=== PATIENT | female | born 1940 | race Caucasian/White ===

== ENCOUNTER → 2019-05-21 19:35 | Outpatient (ROUT) | payer MEDICARE, OTHER, SELFPAY ==
[2019-05-21 19:51] LABS: Add Manual Diff / Slide Review NO; Basophils Absolute Auto 0 /uL (0-100); Basophils Percent Auto 0.6 % (0-2); Eosinophils Absolute Auto 100 /uL (0-450); Eosinophils Percent Auto 0.9 % (2-4); Hematocrit 47.1 % (36-46); Hemoglobin 15.7 g/dL (12.0-16.0); Lymphocytes Absolute Auto 2000 /uL (1100-4500); Lymphocytes Percent Auto 24.7 % (25-40); Mean Corpuscular HGB Conc 33.4 % (30-36); Mean Corpuscular Hemoglobin 31.5 PG (26-34); Mean Corpuscular Volume 94.2 fL (80-100); Monocytes Absolute Auto 1100 /uL (0-900); Monocytes Percent Auto 13.6 % (3-14); Neutrophils Absolute Auto 5000 /uL (1500-7000); Neutrophils Percent Auto 60.2 % (50-75); Red Cell Distribution Width 14.7 % (11.6-14.8); White Blood Cell Count 8.2 X10^3/uL (4.5-11.0)
[2019-05-21 19:58] LABS: Alanine Aminotransferase 21 IU/L (<35); Albumin 4.4 g/dL (3.5-5.0); Albumin Globulin Ratio 1.3 (1.0-2.8); Alkaline Phosphatase 67 U/L (38-126); Aspartate Aminotransferase 34 IU/L (14-36); BUN Creatinine Ratio 38.6 (6-22); Bilirubin Total 0.8 mg/dL (0.2-1.3); Blood Urea Nitrogen 27 mg/dL (7-17); Calcium 10.7 mg/dL (8.4-10.2); Carbon Dioxide 31 mmol/L (22-32); Chloride 99 mmol/L (98-107); Estimated Glomerular Filt Rate > 60.0 mL/min (>60); Globulin 3.4 g/dL (1.7-4.1); Glucose 104 mg/dL (80-110); HEMOLYSIS < 15 (0-50); Magnesium 2.2 mg/dL (1.6-2.3); Potassium 4.1 mmol/L (3.4-5.1); Sodium 141 mmol/L (137-145); Total Protein 7.8 g/dL (6.3-8.2)
[2019-05-21 20:06] LABS: NT-proBNP (BNP-Adult 18+) 4630 pg/mL (<450)
== END ==
PROVIDERS: Family Provider Physician Assistant; PCP Physician Assistant; Visit Provider Internal Medicine
DX: I49.9 Cardiac arrhythmia, unspecified (principal); I10 Essential (primary) hypertension; R06.00 Dyspnea, unspecified; R53.83 Other fatigue
CPT/HCPCS: 80053; 83735; 83880; 84443; 85025

== ENCOUNTER → 2020-03-24 18:57 | Outpatient (ROUT) | payer MEDICARE, OTHER, SELFPAY ==
[2020-03-24 19:24] LABS: Add Manual Diff / Slide Review NO; Basophils Absolute Auto 100 /uL (0-100); Basophils Percent Auto 0.7 % (0-2); Eosinophils Absolute Auto 100 /uL (0-450); Eosinophils Percent Auto 1.5 % (2-4); Hematocrit 38.4 % (36-46); Hemoglobin 12.5 g/dL (12.0-16.0); Lymphocytes Absolute Auto 1400 /uL (1100-4500); Lymphocytes Percent Auto 16.1 % (25-40); Mean Corpuscular HGB Conc 32.7 % (30-36); Mean Corpuscular Hemoglobin 30.5 PG (26-34); Mean Corpuscular Volume 93.4 fL (80-100); Monocytes Absolute Auto 1200 /uL (0-900); Neutrophils Absolute Auto 5700 /uL (1500-7000); Neutrophils Percent Auto 67.7 % (50-75); Platelet Count 161 X10^3/uL (150-400); Red Blood Cell Count 4.11 X10^6/uL (4.0-5.2); Red Cell Distribution Width 15.5 % (11.6-14.8); White Blood Cell Count 8.5 X10^3/uL (4.5-11.0)
[2020-03-24 19:49] LABS: Platelet Estimate Adequate on smear; RBC Morphology Normal Morphology
== END ==
PROVIDERS: Family Provider Physician Assistant; PCP Physician Assistant; Visit Provider Internal Medicine
DX: Z00.00 Encounter for general adult medical examination without abnormal findings (principal); D69.6 Thrombocytopenia, unspecified
CPT/HCPCS: 85025

== ENCOUNTER 2021-05-08 07:00 | Observation (INO) | payer MEDICARE, OTHER, SELFPAY ==
[2021-05-08] VITALS (31 sets, daily range): BP systolic 120–179; BP diastolic 59–102; PULSE 67–90; RESP 16–26; TEMP 35.9–36.6; O2SAT 94–98; BMI 21.0
[2021-05-08] MEDS: NITROGLYCERIN 0.4 MG SL TAB SL ×2 (07:26→07:44)
--- NOTE | 2021-05-08 08:28 | DI.RAD.S_ITS ---
PROCEDURE: XR CHEST 1V INDICATIONS: chest pressure TECHNIQUE: One view of the chest was acquired. COMPARISON: None. FINDINGS: Surgical changes and devices: Left chest wall cardiac pacer. Partially visualized cholecystectomy clips. Lungs and pleura: Lungs are clear. No pleural effusions or pneumothorax. Lungs hyperinflated suggesting COPD. Mediastinum: Mediastinal contours appear normal. Heart size is normal. Bones and chest wall: No suspicious bony lesions. Overlying soft tissues appear unremarkable. IMPRESSION: No acute cardiopulmonary disease process. Dictated by: Emma Rose MD, PhD on 05/08/2021 at 10:40 Approved by: Emma Rose MD, PhD on 05/08/2021 at 10:41
[2021-05-08 08:36] LABS: Alanine Aminotransferase 18 IU/L (<35); Albumin 4.6 g/dL (3.5-5.0); Albumin Globulin Ratio 1.2 (1.0-2.8); Alkaline Phosphatase 64 U/L (38-126); Aspartate Aminotransferase 33 IU/L (14-36); BUN Creatinine Ratio 22.2 (6-22); Bilirubin Total 0.7 mg/dL (0.2-1.3); Blood Urea Nitrogen 26 mg/dL (7-17); Calcium 10.3 mg/dL (8.4-10.2); Carbon Dioxide 31 mmol/L (22-32); Chloride 101 mmol/L (98-107); Creatine Kinase 50 U/L (30-135); Estimated Glomerular Filt Rate 44.6 mL/min (>60); Globulin 3.7 g/dL (1.7-4.1); Glucose 131 mg/dL (80-110); HEMOLYSIS < 15 (0-50); Lipase 153 U/L (23-300); Potassium 4.6 mmol/L (3.4-5.1); Sodium 141 mmol/L (137-145); Total Protein 8.3 g/dL (6.3-8.2); Troponin I 0.041 ng/mL (0.01-0.034)
--- NOTE | 2021-05-08 08:38 | ED.CHESTPAIN ---
HPI - Chest Pain General Chief Complaint: Chest Pain Stated Complaint: chest pressure Time Seen by Provider: 05/08/21 07:00 History of Present Illness HPI narrative: Patient is a 74-year-old female who has history of atrial fibrillation with pacemaker on warfarin presenting with chest pressure.? She states this started last evening he not sure when she described as a dull ache but constant.? She says that she has felt this before however it has always gone away and it has lasted all night.? She denies any shortness of breath no nausea or vomiting.? No palpitations dizziness or lightheadedness.? The pain is nonradiating.? She has no known coronary artery disease.? She received 1 nitroglycerin with EMS and is unsure if it helped. Related Data Home Medications Medication Instructions Recorded Confirmed amiodarone 200 mg tablet 200 mg PO BID 05/08/21 05/08/21 furosemide 20 mg tablet 20 mg PO DAILY 05/08/21 05/08/21 hydrocodone 5 mg-acetaminophen 325 1 tab PO BEDTIME PRN 05/08/21 05/08/21 mg tablet lisinopril 20 mg tablet 20 mg PO BID 05/08/21 05/08/21 metformin 500 mg tablet,extended 500 mg PO BID 05/08/21 05/08/21 release 24 hr metoprolol succinate 100 mg 100 mg PO BID 05/08/21 05/08/21 tablet,extended release 24 hr rosuvastatin 10 mg tablet 10 mg PO BEDTIME 05/08/21 05/08/21 spironolactone 25 mg tablet 25 mg PO DAILY 05/08/21 05/08/21 warfarin 2 mg tablet 2 mg PO DAILY 05/08/21 05/08/21 Allergies Allergy/AdvReac Type Severity Reaction Status Date / Time aspirin Allergy Mild Rash Verified 05/08/21 08:33 Penicillins Allergy Mild Rash Verified 05/08/21 11:40 tetracycline Allergy Mild Rash Verified 05/08/21 11:45 amoxicillin Allergy Unknown Verified 05/08/21 11:40 atenolol Allergy Unknown Verified 05/08/21 11:40 cephalexin Allergy Unknown Verified 05/08/21 11:40 clavulanic acid Allergy Unknown Verified 05/08/21 11:40 erythromycin base Allergy Unknown Verified 05/08/21 11:40 Iodine and Iodide Containing Allergy Unknown Verified 05/08/21 10:23 Produc nitrofurantoin Allergy Unknown Verified 05/08/21 11:40 sulfamethoxazole Allergy Unknown Verified 05/08/21 11:40 [From Bactrim] trimethoprim [From Bactrim] Allergy Unknown Verified 05/08/21 11:40 alcohol AdvReac Unknown Verified 05/08/21 11:40 Review of Systems Review of Systems Narrative: ? GENERAL: Denies chills, fatigue, malaise, fever, sweats, travel HEENT: Denies sinus pain, ear pain, sore throat, difficulty swallowing, neck pain RESPIRATORY: Denies dyspnea, cough, wheezing, hemoptysis, sputum. CARDIOVASCULAR:? See HPI GASTROINTESTINAL: Denies nausea, vomiting, abdominal pain, diarrhea, constipation, melena. : Denies dysuria, frequency, incontinence, hematuria, urinary retention, flank pain. MUSCULOSKELETAL: Denies weakness, joint pain, or bony pain SKIN: No rash, no erythema, no pruritus NEUROLOGIC: Denies weakness, dizziness, headache, numbness, change in speech, confusion PSYCHIATRIC: No concerning psychosocial issues. ? 12 point review of systems is negative except for those stated above and HPI Patient History Medical History Arrhythmia Atrial fibrillation Diabetes HTN (hypertension) Pacemaker Surgical History H/O section S/P placement of cardiac pacemaker Family History Mother Hypertension Father Hypertension Social History household members: children Smoking Status: Former smoker alcohol intake: never Exam Initial Vital Signs Initial Vital Signs: Vital Signs Temperature 97.7 F 05/08/21 07:00 Pulse Rate 69 05/08/21 07:00 Respiratory Rate 18 05/08/21 07:00 Blood Pressure 178/92 H 05/08/21 07:00 Pulse Oximetry 98 05/08/21 07:00 ? GENERAL: ?Alert well-appearing 74-year-old female no acute distress and in [no acute] distress. HEENT: Head atraumatic,EOMI, pupils reactive, face symmetric, [moist] mucous membranes CARDIOVASCULAR: Regular rate and rhythm without murmurs, rubs or gallops. RESPIRATORY: Breath sounds equal bilaterally, no wheezes rales or rhonchi. ABDOMEN: Soft, nontender.? Normoactive bowel sounds all 4 quadrants.? No guarding or rebound. EXTREMITIES: Normal range of motion, no clubbing or edema.? Neurovascularly intact NEUROLOGICAL: Alert and oriented x4.Normal gait and speech. SKIN: Warm, dry, no laceration, no petechiae, no rashes or lesions. Scores HEART Score Heart Score history: Moderately Suspicious Heart Score EKG: Normal Heart Score Age: > or = 65 years old Heart Score risk factors: 1-2 risk factors Heart Score troponin: < or = to normal limit Heart Score Total: 4 Course Orders Ordered: ED Orders 05/08/21 10:49 COVID19 -Nasal swab/Pre-Proc Stat Acetaminophen (Acetaminophen 325 Mg Tablet) 650 mg PO Q6HR PRN PRN Reason: Fever/Mild Pain (1-3) Hydrocodone Bitart/Acetaminophen (Hydrocodone/Acet 5/325 Tablet) 1 tab PO BEDTIME PRN PRN Reason: Pain (Scale Score 1-3) Amiodarone HCl (Amiodarone 200 Mg Tablet) 200 mg PO BID [facility] Atorvastatin Calcium (Atorvastatin 20 Mg Tablet) 20 mg PO BEDTIME JADYN Furosemide (Furosemide 20 Mg Tablet) 20 mg PO DAILY [facility] Lisinopril (Lisinopril 20 Mg Tablet) 20 mg PO BID JADYN Metformin HCl (Metformin Xr 500 Mg Tablet) 500 mg PO BID JADYN Metoprolol Succinate (Metoprolol Er 50 Mg Tablet) 100 mg PO BID JADYN Nitroglycerin (Nitroglycerin 0.4 Mg Sl Tab) 0.4 mg SL [id number] PRN PRN Reason: Chest Pain Last Admin: 05/08/21 07:44 Dose: 0.4 mg Documented by: Admin: 05/08/21 07:26 Dose: 0.4 mg Documented by: HAL Spironolactone (Spironolactone 25 Mg Tablet) 25 mg PO DAILY [facility] Warfarin Sodium (Warfarin 2 Mg Tablet) 2 mg PO DAILY JADYN Vital Signs Vital signs: Vital Signs - 8 hr 05/08/21 11:00 05/08/21 11:07 05/08/21 11:30 Pulse Rate 70 71 69 Respiratory Rate 18 19 19 Blood Pressure 148/71 H 154/74 H Pulse Oximetry 96 96 96 05/08/21 11:32 05/08/21 12:00 05/08/21 12:30 Pulse Rate 69 73 69 Respiratory Rate 18 16 17 Blood Pressure 154/74 H Pulse Oximetry 95 97 95 05/08/21 12:31 05/08/21 13:00 Pulse Rate 69 72 Respiratory Rate 20 26 H Blood Pressure 154/75 H 156/75 H Pulse Oximetry 95 96 MDM - Chest Pain Lab Data Result diagrams: 05/08/21 08:30 05/08/21 08:30 Labs: Lab Results 05/08/21 05/08/21 05/08/21 Range/Units 08:30 08:30 08:30 WBC 9.3 (4.5-11.0) X10^3/uL RBC 4.68 (4.0-5.2) X10^6/uL Hgb 14.3 (12.0-16.0) g/dL Hct 42.9 (36-46) % MCV 91.7 (80-100) fL MCH 30.6 (26-34) PG MCHC 33.3 (30-36) % RDW 14.5 (11.6-14.8) % Plt Count 217 (150-400) X10^3/uL Neut % (Auto) 57.2 (50-75) % Lymph % (Auto) 22.9 L (25-40) % [place] % (Auto) 17.3 H (3-14) % Eos % (Auto) 2.0 (2-4) % Baso % (Auto) 0.6 (0-2) % Neut # (Auto) 5300 (0904-6826) /uL Lymph # (Auto) 2100 (5354-1711) /uL [place] # (Auto) 1600 H (0-900) /uL Eos # (Auto) 200 (0-450) /uL Baso # (Auto) 100 (0-100) /uL PT 21.2 H (10.1-12.7) SECONDS INR 1.9 H (0.9-1.3) APTT 39 H (26.4-36.2) SECONDS Sodium 141 (137-145) mmol/L Potassium 4.6 (3.4-5.1) mmol/L Chloride 101 (98-107) mmol/L Carbon Dioxide 31 (22-32) mmol/L BUN 26 H (7-17) mg/dL Creatinine 1.17 H (0.52-1.04) mg/dL Estimated GFR 44.6 L (>60) mL/min BUN/Creatinine Ratio 22.2 H (6-22) Glucose 131 H (80-110) mg/dL Calcium 10.3 H (8.4-10.2) mg/dL Magnesium 1.9 (1.6-2.3) mg/dL Total Bilirubin 0.7 (0.2-1.3) mg/dL AST 33 (14-36) IU/L ALT 18 (<35) IU/L Alkaline Phosphatase 64 (38-126) U/L Total Creatine Kinase 50 (30-135) U/L CK-MB (CK-2) TNP CK-MB (CK-2) Rel Index TNP Troponin I 0.041 H (0.01-0.034) ng/mL Total Protein 8.3 H (6.3-8.2) g/dL Albumin 4.6 (3.5-5.0) g/dL Globulin 3.7 (1.7-4.1) g/dL Albumin/Globulin Ratio 1.2 (1.0-2.8) Lipase 153 (23-300) U/L Urine Color Urine Appearance Urine pH (4.5-8.0) Ur Specific [place] (1.000-1.035) Urine Protein (Negative) Urine Glucose (UA) (Negative) g/dL Urine Ketones (NEGATIVE) Urine Occult Blood (Negative) Urine Nitrate (Negative) Urine Bilirubin (NEGATIVE) Urine Urobilinogen (0.2) E.U./dL Ur Leukocyte Esterase (NEGATIVE) Urine RBC (0-5/HPF) Urine WBC (0-5/HPF) Ur Squamous Epith Cells (0-5/HPF) Ur Transition Epith Cell (0-5/HPF) Urine Bacteria (None) Ur Culture Indicated? SARS-CoV-2 (PCR) (Negative) 05/08/21 05/08/21 05/08/21 Range/Units 09:27 09:30 10:49 WBC (4.5-11.0) X10^3/uL RBC (4.0-5.2) X10^6/uL Hgb (12.0-16.0) g/dL Hct (36-46) % MCV (80-100) fL MCH (26-34) PG MCHC (30-36) % RDW (11.6-14.8) % Plt Count (150-400) X10^3/uL Neut % (Auto) (50-75) % Lymph % (Auto) (25-40) % [place] % (Auto) (3-14) % Eos % (Auto) (2-4) % Baso % (Auto) (0-2) % Neut # (Auto) (7934-0690) /uL Lymph # (Auto) (6225-9955) /uL [place] # (Auto) (0-900) /uL Eos # (Auto) (0-450) /uL Baso # (Auto) (0-100) /uL PT (10.1-12.7) SECONDS INR (0.9-1.3) APTT (26.4-36.2) SECONDS Sodium (137-145) mmol/L Potassium (3.4-5.1) mmol/L Chloride (98-107) mmol/L Carbon Dioxide (22-32) mmol/L BUN (7-17) mg/dL Creatinine (0.52-1.04) mg/dL Estimated GFR (>60) mL/min BUN/Creatinine Ratio (6-22) Glucose (80-110) mg/dL Calcium (8.4-10.2) mg/dL Magnesium (1.6-2.3) mg/dL Total Bilirubin (0.2-1.3) mg/dL AST (14-36) IU/L ALT (<35) IU/L Alkaline Phosphatase (38-126) U/L Total Creatine Kinase (30-135) U/L CK-MB (CK-2) CK-MB (CK-2) Rel Index Troponin I 0.037 H (0.01-0.034) ng/mL Total Protein (6.3-8.2) g/dL Albumin (3.5-5.0) g/dL Globulin (1.7-4.1) g/dL Albumin/Globulin Ratio (1.0-2.8) Lipase (23-300) U/L Urine Color Yellow Urine Appearance Clear Urine pH 6.5 (4.5-8.0) Ur Specific [place] 1.010 (1.000-1.035) Urine Protein Negative (Negative) Urine Glucose (UA) Negative (Negative) g/dL Urine Ketones Negative (NEGATIVE) Urine Occult Blood Trace-lysed (Negative) Urine Nitrate Negative (Negative) Urine Bilirubin Negative (NEGATIVE) Urine Urobilinogen 0.2 (0.2) E.U./dL Ur Leukocyte Esterase Trace H (NEGATIVE) Urine RBC 0-1/hpf (0-5/HPF) Urine WBC 1-5/hpf (0-5/HPF) Ur Squamous Epith Cells 1-5 /hpf (0-5/HPF) Ur Transition Epith Cell 0-1/hpf (0-5/HPF) Urine Bacteria Few (2-10) H (None) Ur Culture Indicated? Specimen cultured SARS-CoV-2 (PCR) Negative (Negative) Imaging Data Chest x-ray: Radiologist's Impression: PROCEDURE:? XR CHEST 1V ? INDICATIONS:? chest pressure ? TECHNIQUE:? One view of the chest was acquired.? ? COMPARISON:? None. ? FINDINGS:? ? Surgical changes and devices:? Left chest wall cardiac pacer.? Partially visualized cholecystectomy clips.? ? Lungs and pleura:? Lungs are clear.? No pleural effusions or pneumothorax.? Lungs hyperinflated suggesting COPD.? ? Mediastinum:? Mediastinal contours appear normal.? Heart size is normal.? ? Bones and chest wall:? No suspicious bony lesions.? Overlying soft tissues appear unremarkable.? ? IMPRESSION:? No acute cardiopulmonary disease process. ? ? Dictated by: Emma Rose MD, PhD on 05/08/2021 at 10:40 ? ? ECG Data Interpretation: Normal sinus rhythm rate 70 VA interval 204 QRS 140 QTC [address] changes EKG 2. Sinus rhythm rate [address] changes similar to previous MDM Narrative Medical decision making narrative: Patient having chest pressure which is relieved by nitroglycerin. Troponins are indeterminate but trending down words 12:30 Dr. Banuelos cardiology, ice updated on patient's symptoms and test results. States that she had a stress test in November of 2020 and it was normal. Recommends treating in controlling her blood pressure trending troponins and echocardiogram noted need to repeat stress test at this time. Dr. Pacheco, updated patient's symptoms test results cardiology recommendations and accepts for observation Discharge Plan Departure Patient Disposition: Admitted as Observation Clinical Impression: Chest pain Admit Date/Time: 05/08/21 13:23 Admit Provider: Carlito Pacheco
[2021-05-08 08:42] LABS: Add Manual Diff / Slide Review NO; Basophils Absolute Auto 100 /uL (0-100); Basophils Percent Auto 0.6 % (0-2); Eosinophils Absolute Auto 200 /uL (0-450); Hematocrit 42.9 % (36-46); Hemoglobin 14.3 g/dL (12.0-16.0); INR 1.9 (0.9-1.3); Lymphocytes Absolute Auto 2100 /uL (1100-4500); Lymphocytes Percent Auto 22.9 % (25-40); Mean Corpuscular HGB Conc 33.3 % (30-36); Mean Corpuscular Hemoglobin 30.6 PG (26-34); Mean Corpuscular Volume 91.7 fL (80-100); Monocytes Absolute Auto 1600 /uL (0-900); Monocytes Percent Auto 17.3 % (3-14); Neutrophils Absolute Auto 5300 /uL (1500-7000); Neutrophils Percent Auto 57.2 % (50-75); PTT Partial Thromboplastin Tim 39 SECONDS (26.4-36.2); Platelet Count 217 X10^3/uL (150-400); Prothrombin Time 21.2 SECONDS (10.1-12.7); Red Blood Cell Count 4.68 X10^6/uL (4.0-5.2); Red Cell Distribution Width 14.5 % (11.6-14.8); White Blood Cell Count 9.3 X10^3/uL (4.5-11.0)
[2021-05-08 08:47] LABS: Magnesium 1.9 mg/dL (1.6-2.3)
[2021-05-08 09:30] LABS: Appearance Urine UA CLEAR; Bilirubin Urine UA NEGATIVE (NEGATIVE); Color Urine UA YELLOW; Glucose Urine UA NEGATIVE (Negative); Ketones Urine UA NEGATIVE (NEGATIVE); Leukocyte Esterase Urine UA TRACE (NEGATIVE); Nitrite Urine UA NEGATIVE (Negative); Occult Blood Urine UA TRACE-LYSED (Negative); Protein Urine UA NEGATIVE (Negative); Urobilinogen Urine UA 0.2 E.U./dL (0.2)
[2021-05-08 09:31] LABS: Bacteria Urine Few (2-10); RBC Urine 0-1/HPF (0-5/HPF); Squamous Epithelial Cell Urine 1-5 /HPF (0-5/HPF); Transitional Epi Cells Urine 0-1/HPF (0-5/HPF); WBC Urine 1-5/HPF (0-5/HPF); pH Urine UA 6.5 (4.5-8.0)
[2021-05-08 09:32] LABS: Culture Indicated Urine Specimen Cultured
[2021-05-08 10:05] LABS: Troponin I 0.037 ng/mL (0.01-0.034)
[2021-05-08 11:16] LABS: COVID19 -Nasal RAPID Negative (Negative)
--- NOTE | 2021-05-08 13:59 | PC.NURSE ---
Daughter Morenita [phone]
--- NOTE | 2021-05-08 14:05 | DI.ECHO.S_ITS ---
[facility]---------+ [facility] +---------+ : : [id number] : : : : [id number] : : : : Phone: [phone]+ Echocardiogram Report + + :Name: MARIANO TANNER Study Date: 05/09/2021 Height: 62 in : :[facility] ReadingLocation: Weight: 115 lb : : Gender: Female BSA: 1.5 m2 : :: 1940 Age: 80 yrs BP: 128/94 mmHg: :Reason For Study: Chest pain : :Ordering Physician: JOSIANE, : :AUDREY FLOREZ Performed By: Ramón Ruby : :Referring: AUDREY JOSHUA : + + Interpretation Summary The left ventricle is mildly dilated. The ejection fraction is estimated to be 35-40%. There is a significant dyssynchronous contraction pattern due to the paced rhythm. Diastolic function could not be accurately assessed due to paced rhythm. The right ventricle is normal in size and function. The left atrium is severely dilated. The right atrium is moderately dilated. The interatrial septum bows toward right atrium consistent with elevated left atrial pressure. There is mild mitral regurgitation. There is mild tricuspid regurgitation. PASP is approximately 25 to 30 mmHg. Compared to the prior study dated 05/27/2020, the LVEF appears to have slightly improved in the mitral and tricuspid regurgitation has slightly decreased. Procedure: A two-dimensional transthoracic echocardiogram with color flow and Doppler was performed. The study quality was technically adequate. The suprasternal notch views were difficult to obtain and are suboptimal in quality. Comparison is made with the echocardiogram of 05/27/2020. The patient has a paced rhythm. Left Ventricle: The left ventricle is mildly dilated. There is normal left ventricular wall thickness. The ejection fraction is estimated to be 35-40%. There is a significant dyssynchronous contraction pattern due to the paced rhythm. Diastolic function could not be accurately assessed due to paced rhythm. Right Ventricle: There is a pacemaker lead in the right ventricle. The right ventricle is normal in size and function. Atria: The left atrium is severely dilated. There is a catheter/pacemaker lead seen in the right atrium. The right atrium is moderately dilated. The interatrial septum bows toward right atrium consistent with elevated left atrial pressure. There is no Doppler evidence for an interatrial shunt. Mitral Valve: There is a flat closure plane of the the mitral valve leaflets. The mitral valve leaflets appear mildly thickened, but open well. There is mild mitral regurgitation. Aortic Valve: The aortic valve is trileaflet. The aortic valve opens well. There is no aortic valve stenosis. There is trace aortic regurgitation. Tricuspid Valve: The tricuspid valve is normal. There is mild tricuspid regurgitation. PASP is approximately 25 to 30 mmHg. Pulmonic Valve: The pulmonic valve leaflets are thin and pliable; valve motion is normal. There is trace pulmonic regurgitation. Great Vessels: The aortic root is normal size. The ascending aorta is normal in size. The aortic arch could not be visualized. The IVC is of normal diameter and collapses greater than 50% with a sniff. This suggests a low right atrial pressure of 3 mm Hg. Pericardium/ Pleura There is an anterior echo-free space consistent with a fat pad. There is a trivial pericardial effusion noted. There is no pleural effusion. MMode/2D Measurements & Calculations LVIDd: 5.4 cm LVOT diam: 1.6 cm LVIDs: 4.0 cm Ao root diam: 2.9 cm FS: 25.0 % asc Aorta Diam: 2.7 cm IVSd: 0.76 cm LVPWd: 0.77 cm LV hyde. diameter/BSA (cm/m^2): 3.6 LV sys. diameter/BSA (cm/m^2): 2.7 LA A2 area: 10.8 cm2 RA long axis: 5.5 cm LA A4 area: 22.0 cm2 RA area: 14.9 cm2 LA length (vol): 6.0 cm RA vol: 34.3 ml LA vol: 33.5 ml RA : 22.7 ml/m2 LA vol index: 22.2 ml/m2 TAPSE: 1.9 cm Doppler Measurements & Calculations Ao V2 max: 138.1 cm/sec LVOT Max Alex: 89.3 cm/sec Ao V2 mean: 93.4 cm/sec LV V1 max P.2 mmHg Ao max P.6 mmHg LV V1 VTI: 15.4 cm Ao mean P.8 mmHg NEHAL(I,D): 1.3 cm2 Ao V2 VTI: 24.5 cm NEHAL(V,D): 1.4 cm2 sev ratio: 0.63 NEHAL indexed to BSA (cm^2/m^2): 0.88 MV E max alex: 60.0 cm/sec TR max alex: 215.2 cm/sec MV A max alex: 67.2 cm/sec TR max P.5 mmHg MV E/A: 0.89 Med Peak E' Alex: 3.4 cm/sec E/E' med: 17.7 Lat Peak E' Alex: 5.1 cm/sec E/E' lat: 11.9 E/e' average: 14.8 MV dec time: 0.25 sec SV(LVOT): 32.6 ml Reading Physician:02:34 PM
--- NOTE | 2021-05-08 16:38 | PM.HP.1 ---
History of Present Illness History of Present Illness Date Patient Seen: 05/08/21 Time Patient Seen: 15:00 Chief complaint: chest pressure Narrative: This is a 80-year-old female with a past medical history of hypertension, atrial fibrillation and unknown arrhythmia with pacemaker placement approximately 3 years ago, and insulin-dependent diabetes who presented to the ER with chest pressure starting early this AM. She also describes her left shoulder as feeling not normal but could not describe this any further. She denies any neck pain, or tingling in her left arm. She did feel some palpitations intermittently but this was not necessarily associated with her chest pressure. The pressure lasted until the emergency room and is no longer present, which was about 4 hours. Nothing particularly made the pressure any better or worse, though she did receive nitro in the emergency room and then had subsequent resolution. Denies any prior GERD. has had shorter episodes of chest pressure and had a stress test recently with her sawmill moulder operator, Dr. Banuelos, which was deemed low risk for ischemia. In the emergency room, the patient was mildly hypertensive but the remainder of her vital signs were unremarkable. CBC was unremarkable. INR was mildly subtherapeutic at 1.9. Chemistries were unremarkable except for a mild elevation in troponin at 0.041. Repeat 1 hour later was slightly down trending. Urinalysis was borderline for possible infection and the specimen was sent for culture. COVID-19 testing was negative. Emergency room physician discussed with the patient's sawmill moulder operator Dr. Banuelos, who recommended echocardiogram in the morning and further trending of troponins. Given recent stress testing he did not recommend further ischemic evaluation at this time. Patient History Medical History Arrhythmia Atrial fibrillation Diabetes HTN (hypertension) Pacemaker Surgical History H/O section S/P placement of cardiac pacemaker Family & Social History Family History Mother Hypertension Father Hypertension Social History: household members children Prior Living Arrangements House Safety & Behavioral: Feels Safe in Current Yes Environment Been Physically Hurt or No Threatened By a Person Suicidal Ideation Description None Suicide Plan Description No Plan Tobacco & Substance use: Tobacco type cigarettes Smoking Status Former smoker alcohol intake never Substance Use Type does not use Meds Home Medications and Allergies Home Medications Medication Instructions Recorded Confirmed Type amiodarone 200 mg tablet 200 mg PO BID 05/08/21 05/08/21 History furosemide 20 mg tablet 20 mg PO DAILY 05/08/21 05/08/21 History hydrocodone 5 mg-acetaminophen 325 1 tab PO BEDTIME PRN 05/08/21 05/08/21 History mg tablet lisinopril 20 mg tablet 20 mg PO BID 05/08/21 05/08/21 History metformin 500 mg tablet,extended 500 mg PO BID 05/08/21 05/08/21 History release 24 hr metoprolol succinate 100 mg 100 mg PO BID 05/08/21 05/08/21 History tablet,extended release 24 hr rosuvastatin 10 mg tablet 10 mg PO BEDTIME 05/08/21 05/08/21 History spironolactone 25 mg tablet 25 mg PO DAILY 05/08/21 05/08/21 History warfarin 2 mg tablet 2 mg PO DAILY 05/08/21 05/08/21 History Allergies Allergy/AdvReac Type Severity Reaction Status Date / Time aspirin Allergy Mild Rash Verified 05/08/21 08:33 Penicillins Allergy Mild Rash Verified 05/08/21 11:40 tetracycline Allergy Mild Rash Verified 05/08/21 11:45 amoxicillin Allergy Unknown Verified 05/08/21 11:40 atenolol Allergy Unknown Verified 05/08/21 11:40 cephalexin Allergy Unknown Verified 05/08/21 11:40 clavulanic acid Allergy Unknown Verified 05/08/21 11:40 erythromycin base Allergy Unknown Verified 05/08/21 11:40 Iodine and Iodide Containing Allergy Unknown Verified 05/08/21 10:23 Produc nitrofurantoin Allergy Unknown Verified 05/08/21 11:40 sulfamethoxazole Allergy Unknown Verified 05/08/21 11:40 [From Bactrim] trimethoprim [From Bactrim] Allergy Unknown Verified 05/08/21 11:40 alcohol AdvReac Unknown Verified 05/08/21 11:40 Review of Systems Review of Systems Narrative: All other systems reviewed with the patient and are negative unless otherwise stated. Exam Vital Signs (past 8 hours): - 05/08/21 09:00 05/08/21 09:34 05/08/21 10:00 Pulse Rate 75 69 72 Respiratory Rate 18 18 18 Blood Pressure 169/70 H 146/83 H 154/72 H Pulse Oximetry 95 95 96 05/08/21 10:30 05/08/21 11:00 05/08/21 11:07 Pulse Rate 74 70 71 Respiratory Rate 18 18 19 Blood Pressure 136/65 148/71 H Pulse Oximetry 95 96 96 05/08/21 11:30 05/08/21 11:32 05/08/21 12:00 Pulse Rate 69 69 73 Respiratory Rate 19 18 16 Blood Pressure 154/74 H 154/74 H Pulse Oximetry 96 95 97 05/08/21 12:30 05/08/21 12:31 05/08/21 13:00 Pulse Rate 69 69 72 Respiratory Rate 17 20 26 H Blood Pressure 154/75 H 156/75 H Pulse Oximetry 95 95 96 05/08/21 13:30 05/08/21 13:55 05/08/21 15:14 Pulse Rate 69 74 Respiratory Rate 18 16 18 Blood Pressure 155/77 H 140/72 Pulse Oximetry 95 95 97 Oxygen Delivery Method Room Air Narrative Exam Narrative: GENERAL APPEARANCE: Well developed, well nourished, in no acute distress. SKIN: Inspection of the skin reveals no rashes, ulcerations or petechiae. HEENT: Normocephalic atraumatic, extraocular muscles are intact, oropharynx is clear and mucous membranes are moist, neck is supple without adenopathy NECK: Supple and symmetric. There was no thyroid enlargement, and no tenderness, or masses were felt. CHEST: Normal AP diameter and normal contour without any kyphoscoliosis. LUNGS: Auscultation of the lungs revealed no wheezes, rhonchi, or rales. CARDIOVASCULAR: There was a regular rate and rhythm without any murmurs, gallops, rubs. Peripheral pulses were 2+ and symmetric. ABDOMEN: Soft and nontender with normal bowel sounds. No ascites was noted. MUSCULOSKELETAL: There was no tenderness or effusions noted. Muscle strength and tone were normal. EXTREMITIES: No cyanosis, clubbing or edema. NEUROLOGIC: Alert and oriented x 3. Normal affect. Gait was normal. Strength is +5/5 in the Upper Extremities and Lower Extremities Bilaterally. Sensation to touch was normal. Objective ECG Impression: Atrial-paced rhythm Right bundle branch block Imaging Chest x-ray: My impression: No acute disease. Radiologist's impression: PROCEDURE:? XR CHEST 1V ? INDICATIONS:? chest pressure ? TECHNIQUE:? One view of the chest was acquired.? ? COMPARISON:? None. ? FINDINGS:? ? Surgical changes and devices:? Left chest wall cardiac pacer.? Partially visualized cholecystectomy clips.? ? Lungs and pleura:? Lungs are clear.? No pleural effusions or pneumothorax.? Lungs hyperinflated suggesting COPD.? ? Mediastinum:? Mediastinal contours appear normal.? Heart size is normal.? ? Bones and chest wall:? No suspicious bony lesions.? Overlying soft tissues appear unremarkable.? ? IMPRESSION:? No acute cardiopulmonary disease process. Labs Result Diagrams: 05/09/21 05:06 05/09/21 05:06 Labs: Laboratory Results - last 24 hr 05/08/21 05/08/21 05/08/21 08:30 08:30 08:30 WBC 9.3 RBC 4.68 Hgb 14.3 Hct 42.9 MCV 91.7 MCH 30.6 MCHC 33.3 RDW 14.5 Plt Count 217 Neut % (Auto) 57.2 Lymph % (Auto) 22.9 L [place] % (Auto) 17.3 H Eos % (Auto) 2.0 Baso % (Auto) 0.6 Neut # (Auto) 5300 Lymph # (Auto) 2100 [place] # (Auto) 1600 H Eos # (Auto) 200 Baso # (Auto) 100 PT 21.2 H INR 1.9 H APTT 39 H Sodium 141 Potassium 4.6 Chloride 101 Carbon Dioxide 31 BUN 26 H Creatinine 1.17 H Estimated GFR 44.6 L BUN/Creatinine Ratio 22.2 H Glucose 131 H Calcium 10.3 H Magnesium 1.9 Total Bilirubin 0.7 AST 33 ALT 18 Alkaline Phosphatase 64 Total Creatine Kinase 50 CK-MB (CK-2) TNP CK-MB (CK-2) Rel Index TNP Troponin I 0.041 H Total Protein 8.3 H Albumin 4.6 Globulin 3.7 Albumin/Globulin Ratio 1.2 Lipase 153 Urine Color Urine Appearance Urine pH Ur Specific [place] Urine Protein Urine Glucose (UA) Urine Ketones Urine Occult Blood Urine Nitrate Urine Bilirubin Urine Urobilinogen Ur Leukocyte Esterase Urine RBC Urine WBC Ur Squamous Epith Cells Ur Transition Epith Cell Urine Bacteria Ur Culture Indicated? SARS-CoV-2 (PCR) 05/08/21 05/08/21 05/08/21 09:27 09:30 10:49 WBC RBC Hgb Hct MCV MCH MCHC RDW Plt Count Neut % (Auto) Lymph % (Auto) [place] % (Auto) Eos % (Auto) Baso % (Auto) Neut # (Auto) Lymph # (Auto) [place] # (Auto) Eos # (Auto) Baso # (Auto) PT INR APTT Sodium Potassium Chloride Carbon Dioxide BUN Creatinine Estimated GFR BUN/Creatinine Ratio Glucose Calcium Magnesium Total Bilirubin AST ALT Alkaline Phosphatase Total Creatine Kinase CK-MB (CK-2) CK-MB (CK-2) Rel Index Troponin I 0.037 H Total Protein Albumin Globulin Albumin/Globulin Ratio Lipase Urine Color Yellow Urine Appearance Clear Urine pH 6.5 Ur Specific [place] 1.010 Urine Protein Negative Urine Glucose (UA) Negative Urine Ketones Negative Urine Occult Blood Trace-lysed Urine Nitrate Negative Urine Bilirubin Negative Urine Urobilinogen 0.2 Ur Leukocyte Esterase Trace H Urine RBC 0-1/hpf Urine WBC 1-5/hpf Ur Squamous Epith Cells 1-5 /hpf Ur Transition Epith Cell 0-1/hpf Urine Bacteria Few (2-10) H Ur Culture Indicated? Specimen cultured SARS-CoV-2 (PCR) Negative Assessment & Plan Assessment & Plan narrative: 1. Chest pressure, acute, now resolved - rule out ACS given borderline troponins. Continue trending until further downtrending. Chest pressure now resolved. - control patient's BP - TTE in AM - no further stress testing per cardiology. - consider PPI trial. 2. HTN, chronic - continue to monitor on home medications for now. 3. permanent atrial fibrillation - continue coumadin, INR checks - patient with PPM placement, atrial paced - continue amiodarone, metoprolol. 4. HLD, chronic - continue statin 5. DM2, non-insulin dependent, chronic - continue metformin Surrogate decision maker: daughter. Code: Full I have utilized all available immediate resources to obtain, update, or review the patient's current medications. Time Spent With Patient Critical Care time: I spent a total of [] minutes of critical care time on this patient's care today; this time is exclusive of procedural time. Quality VTE Deep Vein Thrombosis/Pulmonary Embolism Present on Admission: No MIPS - Admit I confirm the patient?s Advance Care Plan is present, Code status is documented, Surrogate decision maker is in patient?s record [If Yes, STOP here]: Yes
--- NOTE | 2021-05-08 17:54 | PC.NURSE ---
Pt arrived from ED approximately 1410 A/O denies any discomfort at this time. Ambulatred in hallway w/staff w/o incidence. Tele placed as per orders. Call light w/in reach. pt calls apprpriately for needs./ Continue w/plan of care.
[2021-05-08 17:55] LABS: Troponin I 0.043 ng/mL (0.01-0.034)
[2021-05-08] MEDS: METFORMIN XR 500 MG TABLET PO (21:31)
[2021-05-08] MEDS: METOPROLOL ER 50 MG TABLET 100 MG PO (21:31)
[2021-05-08] MEDS: AMIODARONE 200 MG TABLET PO (21:33)
[2021-05-08] MEDS: ATORVASTATIN 20 MG TABLET PO (21:33)
[2021-05-08] MEDS: lisinopriL 20 MG TABLET PO (21:33)
[2021-05-09] VITALS (9 sets, daily range): BP systolic 111–155; BP diastolic 54–82; PULSE 72–78; RESP 16; TEMP 36.6–36.8; O2SAT 94–98
[2021-05-09 01:50] LABS: Troponin I 0.046 ng/mL (0.01-0.034)
[2021-05-09 05:23] LABS: INR 1.9 (0.9-1.3); Prothrombin Time 21.3 SECONDS (10.1-12.7)
[2021-05-09 05:27] LABS: BUN Creatinine Ratio 27.7 (6-22); Blood Urea Nitrogen 28 mg/dL (7-17); Calcium 9.8 mg/dL (8.4-10.2); Carbon Dioxide 31 mmol/L (22-32); Chloride 106 mmol/L (98-107); Estimated Glomerular Filt Rate 52.9 mL/min (>60); Glucose 112 mg/dL (80-110); HEMOLYSIS < 15 (0-50); Potassium 4.5 mmol/L (3.4-5.1); Sodium 139 mmol/L (137-145)
[2021-05-09 05:46] LABS: Add Manual Diff / Slide Review NO; Basophils Absolute Auto 0 /uL (0-100); Basophils Percent Auto 0.6 % (0-2); Eosinophils Absolute Auto 200 /uL (0-450); Eosinophils Percent Auto 2.1 % (2-4); Hematocrit 39.8 % (36-46); Hemoglobin 13.2 g/dL (12.0-16.0); Lymphocytes Absolute Auto 1700 /uL (1100-4500); Lymphocytes Percent Auto 23.9 % (25-40); Mean Corpuscular HGB Conc 33.3 % (30-36); Mean Corpuscular Hemoglobin 30.2 PG (26-34); Mean Corpuscular Volume 90.7 fL (80-100); Monocytes Absolute Auto 1100 /uL (0-900); Monocytes Percent Auto 15.7 % (3-14); Neutrophils Absolute Auto 4100 /uL (1500-7000); Neutrophils Percent Auto 57.7 % (50-75); Platelet Count 190 X10^3/uL (150-400); Red Blood Cell Count 4.39 X10^6/uL (4.0-5.2); Red Cell Distribution Width 14.4 % (11.6-14.8); White Blood Cell Count 7.2 X10^3/uL (4.5-11.0)
[2021-05-09 08:02] LABS: Troponin I 0.044 ng/mL (0.01-0.034)
[2021-05-09] MEDS: METOPROLOL ER 50 MG TABLET 100 MG PO (09:49)
[2021-05-09] MEDS: AMIODARONE 200 MG TABLET PO (09:49)
[2021-05-09] MEDS: METFORMIN XR 500 MG TABLET PO (09:49)
--- NOTE | 2021-05-09 10:23 | PM.DS.1 ---
History of Present Illness History of Present Illness Date Patient Seen: 05/09/21 Time Patient Seen: 10:23 Chief complaint: chest pressure Narrative: This is a 80-year-old female with a past medical history of hypertension, atrial fibrillation and unknown arrhythmia with pacemaker placement approximately 3 years ago, and insulin-dependent diabetes who presented to the ER with chest pressure starting early this AM. She also describes her left shoulder as feeling not normal but could not describe this any further. She denies any neck pain, or tingling in her left arm. She did feel some palpitations intermittently but this was not necessarily associated with her chest pressure. The pressure lasted until the emergency room and is no longer present, which was about 4 hours. Nothing particularly made the pressure any better or worse, though she did receive nitro in the emergency room and then had subsequent resolution. Denies any prior GERD. has had shorter episodes of chest pressure and had a stress test recently with her coverstitch elastic attacher, Dr. Banuelos, which was deemed low risk for ischemia. In the emergency room, the patient was mildly hypertensive but the remainder of her vital signs were unremarkable. CBC was unremarkable. INR was mildly subtherapeutic at 1.9. Chemistries were unremarkable except for a mild elevation in troponin at 0.041. Repeat 1 hour later was slightly down trending. Urinalysis was borderline for possible infection and the specimen was sent for culture. COVID-19 testing was negative. Emergency room physician discussed with the patient's coverstitch elastic attacher Dr. Banuelos, who recommended echocardiogram in the morning and further trending of troponins. Given recent stress testing he did not recommend further ischemic evaluation at this time. Discharge Providers Provider Date of admission: 05/08/21 13:23 Discharge Date: 05/09/21 Primary care physician: Henny Mccarthy PA-C Discharge provider: Carlito Pacheco DO Summary Hospital Course Discharge Diagnosis: 1. Chest pressure, acute, now resolved. ACS ruled out. 2. HTN, chronic ? 3. permanent atrial fibrillation 4. HLD, chronic 5. DM2, non-insulin dependent, chronic 6. Chronic heart failure with reduced ejection fraction. 7. Elevated troponin. Hospital Course: This is a 80-year-old female with a past medical history of permanent atrial fibrillation, hypertension, hyperlipidemia, type 2 diabetes who was admitted after an episode prolonged chest pressure the morning of admission. Symptoms resolved with nitroglycerin given in the emergency room and the patient did not have a recurrence of her chest pressure symptoms during the observation. . Telemetry was unremarkable, though the patient is paced. She had minimally elevated troponins but greater than the 95th percentile. They did not significantly change director the course of 23 hours and slightly down trended the morning of discharge. Echocardiogram performed the morning of discharge showed improvement in her ejection fraction to 35-40% as well as improved regurgitation. The patient plans to follow-up with her coverstitch elastic attacher, Dr. Banuelos. The patient did report some symptoms of hypotension at home predominantly in the mid afternoon. I would change her spironolactone to the early evening to try and equalize her blood pressures over the course of the day. While here, her blood pressures range from 170 systolic to 110 systolic on her home medications with improvement over the course of her admission. Other than the adjustment of timing, I did advise her to hold diuretic medications in the morning should her blood pressure be less than 110 systolic. I asked her to keep a log to further help medication adjustments as an outpatient. She should follow-up with her primary care provider or coverstitch elastic attacher within the next couple of weeks to review blood pressures. Exam Vital Signs (past 8 hours): - 05/09/21 02:53 05/09/21 03:20 05/09/21 07:35 Temperature 98.3 F 98.2 F Pulse Rate 75 72 Respiratory Rate 16 16 Blood Pressure 152/82 H 155/80 H Pulse Oximetry 94 95 98 05/09/21 09:09 05/09/21 09:49 Temperature Pulse Rate Respiratory Rate Blood Pressure 111/54 L Pulse Oximetry 94 Oxygen Delivery Method Room Air Oxygen Flow Rate 0 Narrative Exam Narrative: GENERAL APPEARANCE: Well developed, well nourished, in no acute distress. SKIN: Inspection of the skin reveals no rashes, ulcerations or petechiae. HEENT:? Normocephalic atraumatic, extraocular muscles are intact, oropharynx is clear and mucous membranes are moist NECK: Supple and symmetric. There was no thyroid enlargement, and no tenderness, or masses were felt. CHEST: Normal AP diameter and normal contour without any kyphoscoliosis. LUNGS: Auscultation of the lungs revealed no wheezes, rhonchi, or rales. CARDIOVASCULAR: There was a regular rate and rhythm without any murmurs, gallops, rubs. Peripheral pulses were 2+ and symmetric. ABDOMEN: Soft and nontender with normal bowel sounds. No ascites was noted. MUSCULOSKELETAL: There was no tenderness or effusions noted. Muscle strength and tone were normal. EXTREMITIES: No cyanosis, clubbing or edema. NEUROLOGIC: Alert and oriented x 3. Normal affect. Gait was normal. Strength is +5/5 in the Upper Extremities and Lower Extremities Bilaterally. Sensation to touch was normal. Objective Labs Result Diagrams: 05/09/21 05:06 05/09/21 05:06 Labs: Laboratory Results - last 24 hr 05/08/21 05/08/21 05/09/21 10:49 17:15 01:22 WBC RBC Hgb Hct MCV MCH MCHC RDW Plt Count Neut % (Auto) Lymph % (Auto) [place] % (Auto) Eos % (Auto) Baso % (Auto) Neut # (Auto) Lymph # (Auto) [place] # (Auto) Eos # (Auto) Baso # (Auto) PT INR Sodium Potassium Chloride Carbon Dioxide BUN Creatinine Estimated GFR BUN/Creatinine Ratio Glucose Calcium Troponin I 0.043 H 0.046 H SARS-CoV-2 (PCR) Negative 05/09/21 05/09/21 05/09/21 05:06 05:06 05:06 WBC 7.2 RBC 4.39 Hgb 13.2 Hct 39.8 MCV 90.7 MCH 30.2 MCHC 33.3 RDW 14.4 Plt Count 190 Neut % (Auto) 57.7 Lymph % (Auto) 23.9 L [place] % (Auto) 15.7 H Eos % (Auto) 2.1 Baso % (Auto) 0.6 Neut # (Auto) 4100 Lymph # (Auto) 1700 [place] # (Auto) 1100 H Eos # (Auto) 200 Baso # (Auto) 0 PT 21.3 H INR 1.9 H Sodium 139 Potassium 4.5 Chloride 106 Carbon Dioxide 31 BUN 28 H Creatinine 1.01 Estimated GFR 52.9 L BUN/Creatinine Ratio 27.7 H Glucose 112 H Calcium 9.8 Troponin I SARS-CoV-2 (PCR) 05/09/21 07:30 WBC RBC Hgb Hct MCV MCH MCHC RDW Plt Count Neut % (Auto) Lymph % (Auto) [place] % (Auto) Eos % (Auto) Baso % (Auto) Neut # (Auto) Lymph # (Auto) [place] # (Auto) Eos # (Auto) Baso # (Auto) PT INR Sodium Potassium Chloride Carbon Dioxide BUN Creatinine Estimated GFR BUN/Creatinine Ratio Glucose Calcium Troponin I 0.044 H SARS-CoV-2 (PCR) [facility] Medical History Arrhythmia Atrial fibrillation Diabetes HTN (hypertension) Pacemaker Surgical History H/O section S/P placement of cardiac pacemaker Family History Mother Hypertension Father Hypertension Social History household members: children Smoking Status: Former smoker alcohol intake: never Discharge Plan Discharge Plan Patient Disposition: Home Provider Discharge Comment: You were admitted to the hospital with chest pressure which resolved. I have moved your spironolactone to take at night to try and avoid bottoming out your BP during the day. Please keep a log with at least 2 BP every day and review with cardiology or your PCP office with follow up in the next 2 weeks as further adjustments may be needed. If your BP drops below 110 you can hold your furosemide in the morning or your spironolactone in the evening. Discharge orders & Medications Prescriptions: Continued amiodarone 200 mg tablet 200 mg PO BID 0RF hydrocodone-acetaminophen 5-325 mg tablet 1 tab PO BEDTIME PRN (Reason: Pain (Scale Score 1-3)) 0RF Label Comments: TAKE 1/2 TO 1 TABLET BY MOUTH EVERY EVENING NEEDED FOR MODERATE PAIN FOR UP TO 14 DAYS Rx Instructions: 1/2 tab to 1 tab prn nightly for pain lisinopril 20 mg tablet 20 mg PO BID 0RF metoprolol succinate 100 mg tablet extended release 24 hr 100 mg PO BID 0RF warfarin 2 mg tablet 2 mg PO DAILY 0RF Rx Instructions: changes based on labwork. furosemide 20 mg tablet 20 mg PO DAILY 0RF metformin 500 mg tablet extended release 24 hr 500 mg PO BID 0RF rosuvastatin 10 mg tablet 10 mg PO BEDTIME 0RF Changed spironolactone 25 mg tablet 25 mg PO 1700 Qty: 0 0RF Follow up/Referrals: Henny Mccarthy PA-C [Primary Care Provider] - Diet/Activity/Treatments Diet: Diet as Tolerated Diet comment: coumadin diet Activity: As tolerated Visit Report/Discharge Packet Instructions: DI for Prescription Opioid Use Discharge Data Primary Care Provider: Henny Mccarthy Attending Provider: Carlito Pacheco VTE Deep Vein Thrombosis/Pulmonary Embolism Present on Admission: No
--- NOTE | 2021-05-09 11:13 | CM.DANOTE ---
Patient is a 80 yo female who was admitted on 05/08/21 for Chest Pressure. Pt has [place] and [place] for [place] and her PCP is Henny Mccarthy and her Sports Official is Dr. Banuelos. EMR was reviewed. Per MD, pt with a hx of AFIB and pacemaker placement 3 years ago. Pt admitted for trops and Echo per Sports Official recommendations. Echo results normal. Per MD, pt is medically stable to d/c home today with no identified barriers to discharge. SW met bedside with pt and explained role and she confirms she lives in [facility] and has lots of local supportive family and pt is mostly independent at baseline and typically her Dtr/DPOA [place] provides transport. Pt confirms she is feeling much better and has already spoken to her Dtr who can transport to home around lunchtime. Pt denies any hx of SNF and feels she may have had HH after her pacemaker but is not sure. Pt is very agreeable to home today and is walking around independent in room getting ready while SW talks to her. Pt appears to either have some slight underlying anxiousness vs slight memory issues at baseline as she states see why I get high blood pressure? I'm always having to coordinate things for my family. Pt very pleasant and conversant, but somewhat repetitive in her statements. Plan: Patient to d/c home today via Dtr POV and outpt f/u with PCP and Sports Official and no further SW needs at this time. ALBA Corcoran Discharge Planning/Care Management CM Discharge Assessment Start: 05/09/21 11:12 Freq: Status: Active Protocol: Document 05/09/21 11:12 (Rec: 05/09/21 11:13 [id number]) Discharge Planning Assessment Assigned Authorization Rep ALBA Julio DPOA/Assigned Designee Name Rocael Xavier Contact Information [phone] Advance Directives? No Advance Directives on File No History Provided By Patient,Medical Record Has Patient been admitted in last 30 No days? Prior Living Arrangements House Household Members children Type of transporation used prior to Relies on Others admit Independent with ADL's Yes Is patient alert and oriented? Yes: mostly, some cog impairment Needs Assistance With Home Chores / Shopping Caregiver for Another No Barriers to Discharge No Discharge Plan Home Transportation Arrangement Dtr will transport pt around lunch time Referrals Initiated None needed Whiteboard Updated in Patient Room with Yes name and ext. # of Authorization Rep Review Status In Process Please Provide Date Initial DC 05/09/21 Assessment Was Performed Next Review Type Continued Stay Review
--- NOTE | 2021-05-09 13:55 | PC.NURSE ---
Pt up and active through the course of the morning. Offers no overt c/o. asking about going home. Pt independent in room. Pt taking b'fast and lunch without difficulty. Discharge orders written. Daughter here and instructions given. Pt escorted to car via w/c.
== END 2021-05-09 13:45 | disposition home or self-care (01) ==
LOC: ED 10:52 → AC 13:24
PROVIDERS: Admitting Provider Internal Medicine; Emergency Provider Emergency Medicine; Family Provider Physician Assistant; PCP Physician Assistant; Referring Provider Emergency Medicine; Visit Provider Internal Medicine
DX: R07.9 Chest pain, unspecified (principal); I48.21 Permanent atrial fibrillation; E11.9 Type 2 diabetes mellitus without complications; Z95.0 Presence of cardiac pacemaker; Z79.01 Long term (current) use of anticoagulants; Z79.84 Long term (current) use of oral hypoglycemic drugs; Z20.822 Contact with and (suspected) exposure to COVID-19
CPT/HCPCS: 36415; 71045; 80048; 80053; 81001; 82550; 83690; 83735; 84484; 85025; 85610; 85730; 87086; 87635; 93005; 93010; 93306; 94760; 99284; C9803; G0378